=== PATIENT | male | born 1990 | race Caucasian/White ===

== ENCOUNTER 2017-06-19 10:31 | Emergency (ER) | payer OTHER ==
[2017-06-19] MEDS ORDERED: FLEXERIL PO ONE (12:19)
[2017-06-19] MEDS ORDERED: MOTRIN PO ONE (12:19)
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
--- NOTE | 2017-06-19 12:41 | Cat Scan Report ---
CT SCAN OF THE CERVICAL SPINE: HISTORY: Neck pain. TECHNIQUE: Contiguous 1.25 mm axial images of the cervical spine were obtained. Sagittal and coronal reformatted images. FINDINGS: There is normal alignment of the cervical spine. The body, pedicles and posterior ligaments appear normal. No evidence of fracture or subluxation is seen. The spinal canal appears normal. The prevertebral soft tissues appear normal. IMPRESSION: Unremarkable CT of the cervical spine. No acute process is noted.
--- NOTE | 2017-06-19 13:38 | XRay Report ---
LUMBOSACRAL SPINE, 3 VIEWS: History: Back pain Findings: The vertebral bodies, disk spaces and posterior elements are intact. No compression deformity or malalignment. The SI joints are symmetric and unremarkable. Impression: 1. No evidence for acute injury to the lumbar spine.
--- NOTE | 2017-06-19 13:39 | XRay Report ---
THORACIC SPINE: The bones are normally mineralized with well preserved vertebral height, alignment and interspace distances. No paraspinal soft tissue widening is noted. IMPRESSION: Normal study.
[2017-06-19 14:28] VITALS: BP 138/90
== END 2017-06-19 14:26 | disposition home or self-care (01) ==
LOC: ED 10:31
DX: S16.1XXA Strain of muscle, fascia and tendon at neck level, initial encounter (principal); M54.9 Dorsalgia, unspecified; V49.59XA Passenger injured in collision with other motor vehicles in traffic accident, initial encounter; Y92.488 Other paved roadways as the place of occurrence of the external cause; Y93.89 Activity, other specified; Y99.9 Unspecified external cause status
CPT/HCPCS: 72070; 72100; 72125

== ENCOUNTER 2017-07-11 01:36 | Emergency (ER) | payer SELFPAY ==
[2017-07-11 01:43] VITALS: BP 138/89
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
[2017-07-11] MEDS ORDERED: MOTRIN PO ONE (04:16)
== END 2017-07-11 05:06 | disposition home or self-care (01) ==
LOC: ED 01:36
DX: S39.012A Strain of muscle, fascia and tendon of lower back, initial encounter (principal); V89.2XXA Person injured in unspecified motor-vehicle accident, traffic, initial encounter; Y93.89 Activity, other specified; Y92.89 Other specified places as the place of occurrence of the external cause; Y99.8 Other external cause status
CPT/HCPCS: 99282

== ENCOUNTER 2018-05-05 18:01 | Emergency (ER) | payer SELFPAY ==
[2018-05-05 18:19] VITALS: BP 125/90
[2018-05-05 19:19] LABS: Basophils % (Auto) 0.5 % (0.0-1.8); Eosinophils # (Auto) 0.3 K/mm3 (0.0-0.4); Eosinophils % (Auto) 3.4 % (0.0-4.3); Hematocrit 47.2 % (35.5-45.6); Hemoglobin 15.2 gm/dl (11.8-15.2); Lymphocytes # (Auto) 1.4 K/mm3 (1.2-5.4); Lymphocytes % (Auto) 17.7 % (13.4-35.0); Mean Corpuscular HGB Conc 32 % (32-34); Mean Corpuscular Hemoglobin 30 pg (28-32); Mean Corpuscular Volume 91 fl (84-94); Monocytes # (Auto) 0.6 K/mm3 (0.0-0.8); Monocytes % (Auto) 7.7 % (0.0-7.3); Platelet Count 291 K/mm3 (140-440); Red Blood Count 5.18 M/mm3 (3.65-5.03)
[2018-05-05 19:40] LABS: Alanine Aminotransferase 20 units/L (7-56); Albumin 4.3 g/dL (3.9-5); BUN/Creatinine Ratio 10; Blood Urea Nitrogen 10 mg/dL (9-20); Calcium 9.8 mg/dL (8.4-10.2); Hemolysis Index 8
== END 2018-05-05 21:55 | disposition left against medical advice (07) ==
LOC: ED 18:01
DX: F32.9 Major depressive disorder, single episode, unspecified (principal); Z53.21 Procedure and treatment not carried out due to patient leaving prior to being seen by health care provider
CPT/HCPCS: 36415; 80048; 80053; 84443; 85025; G0480; 80320

== ENCOUNTER → 2018-06-15 22:33 | Emergency (ER) | payer SELFPAY | END | disposition left against medical advice (07) | LOC: ED 22:33 | DX: Z53.21 Procedure and treatment not carried out due to patient leaving prior to being seen by health care provider (principal) ==